=== PATIENT | female | born 1960 | race Caucasian/White ===

== ENCOUNTER 2018-08-22 18:26 | Observation (INO) | payer BC ==
[2018-08-22 22:08] LABS: ADD MAN DIFF? NO
[2018-08-22] MEDS: hydrALAzine 20 MG INJ IV (22:08)
[2018-08-22 22:09] LABS: BASOPHIL # 0.1 10^3/ul (0.0-0.1); BASOPHILS % 0.9 % (0.0-2.0); EOSINOPHILS # 0.3 10^3/ul (0.0-0.5); EOSINOPHILS % 3.3 % (0.0-7.0); HEMATOCRIT 41.4 % (37.0-47.0); HEMOGLOBIN 14.3 g/dl (12.0-16.0); LYMPHOCYTES # 2.7 10^3/ul (0.8-2.9); LYMPHOCYTES % 34.2 % (15.0-51.0); MEAN CORPUSCULAR HEMOGLOBIN 30.3 pg (29.0-33.0); MEAN CORPUSCULAR HGB CONC 34.5 g/dl (32.0-37.0); MEAN CORPUSCULAR VOLUME 87.7 fl (82.0-101.0); MEAN PLATELET VOLUME 9.2 fl (7.4-10.4); MONOCYTE # 0.6 10^3/ul (0.3-0.9); MONOCYTES % 7.6 % (0.0-11.0); NEUTROPHIL # 4.2 10^3/ul (1.6-7.5); NEUTROPHILS % 53.7 % (39.0-77.0); PLATELET COUNT 254 10^3/UL (140-415); RED BLOOD COUNT 4.72 10^6/ul (4.20-5.40); RED CELL DISTRIBUTION WIDTH 12.3 % (11.5-14.5)
[2018-08-22 22:09] LABS: WHITE BLOOD COUNT 7.9 10^3/ul (4.8-10.8)
[2018-08-22 22:27] LABS: ALANINE AMINOTRANSFERASE 15 IU/L (13-69); ALBUMIN 4.1 g/dl (3.3-4.9); ALBUMIN/GLOBULIN RATIO 1.17; ALKALINE PHOSPHATASE 91 IU/L (42-121); ANION GAP 9 (5-13); ASPARTATE AMINO TRANSFERASE 30 IU/L (15-46); BILIRUBIN,INDIRECT 0.3 mg/dl (0-1.1); BILIRUBIN,TOTAL 0.3 mg/dl (0.2-1.3); BLOOD UREA NITROGEN 17 mg/dl (7-20); CALCIUM 9.4 mg/dl (8.4-10.2); CARBON DIOXIDE 28 mmol/L (21-31); CHLORIDE 101 mmol/L (97-110); CREATININE 0.87 mg/dl (0.44-1.00); Estimated GFR > 60 mL/min (>60); GLUCOSE 163 mg/dl (70-220); SODIUM 138 mmol/L (135-144); TOTAL PROTEIN 7.6 g/dl (6.1-8.1)
[2018-08-22 22:28] LABS: INR 0.83; PROTIME 11.5 Sec (11.9-14.9); PT RATIO 0.9
[2018-08-22 22:29] LABS: PARTIAL THROMBOPLASTIN TIME 27.3 Sec (23.0-35.0)
[2018-08-22 22:38] LABS: B-TYPE NATRIURETIC PEPTIDE 159 PG/ML (0-125); TROPONIN-I < 0.012 ng/ml (0.000-0.120)
[2018-08-23] MEDS ORDERED: DEXTROSE 50% 50 ML SYRINGE IV ×2 (00:30)
[2018-08-23] MEDS ORDERED: GLUCOSE GEL 15 GRAM TUBE PO ×2 (00:30)
[2018-08-23] MEDS ORDERED: GLUCAGON 1 MG INJ IM (00:30)
[2018-08-23] MEDS ORDERED: GLUCOSE GEL 15 GRAM TUBE BUCCAL (00:30)
[2018-08-23] MEDS: ASPIRIN (EC) 81 MG TAB PO (00:59)
[2018-08-23] MEDS: hydrALAzine 20 MG INJ IV ×2 (04:06→18:22)
[2018-08-23 06:08] LABS: CHOL/HDL RATIO 4.6 RATIO; HDL CHOLESTEROL 43 mg/dl (37-92); LDL CHOLESTEROL,CALCULATED 133 mg/dl; TRIGLYCERIDES 115 mg/dl (0-149)
[2018-08-23 06:08] LABS: CHOLESTEROL 199 mg/dl (100-200)
[2018-08-23] MEDS ORDERED: AMLODIPINE 5 MG TAB (06:13)
[2018-08-23 06:22] LABS: TROPONIN-I < 0.012 ng/ml (0.000-0.120)
[2018-08-23 06:31] LABS: ADD MAN DIFF? NO
[2018-08-23 06:37] LABS: BASOPHIL # 0.1 10^3/ul (0.0-0.1); BASOPHILS % 0.9 % (0.0-2.0); EOSINOPHILS # 0.2 10^3/ul (0.0-0.5); EOSINOPHILS % 2.6 % (0.0-7.0); HEMATOCRIT 41.9 % (37.0-47.0); HEMOGLOBIN 14.6 g/dl (12.0-16.0); LYMPHOCYTES % 26.2 % (15.0-51.0); MEAN CORPUSCULAR HEMOGLOBIN 30.3 pg (29.0-33.0); MEAN CORPUSCULAR HGB CONC 34.8 g/dl (32.0-37.0); MEAN CORPUSCULAR VOLUME 86.9 fl (82.0-101.0); MEAN PLATELET VOLUME 9.2 fl (7.4-10.4); MONOCYTE # 0.7 10^3/ul (0.3-0.9); MONOCYTES % 8.6 % (0.0-11.0); NEUTROPHIL # 4.7 10^3/ul (1.6-7.5); NEUTROPHILS % 61.4 % (39.0-77.0); PLATELET COUNT 276 10^3/UL (140-415); RED BLOOD COUNT 4.82 10^6/ul (4.20-5.40); RED CELL DISTRIBUTION WIDTH 12.4 % (11.5-14.5)
[2018-08-23 06:37] LABS: WHITE BLOOD COUNT 7.7 10^3/ul (4.8-10.8)
[2018-08-23 07:07] LABS: ANION GAP 9 (5-13); BLOOD UREA NITROGEN 15 mg/dl (7-20); CALCIUM 9.7 mg/dl (8.4-10.2); CARBON DIOXIDE 28 mmol/L (21-31); CHLORIDE 104 mmol/L (97-110); CREATININE 0.66 mg/dl (0.44-1.00); Estimated GFR > 60 mL/min (>60); GLUCOSE 94 mg/dl (70-220); MAGNESIUM 1.8 mg/dl (1.7-2.5); PHOSPHORUS 4.2 mg/dl (2.5-4.9); SODIUM 141 mmol/L (135-144)
[2018-08-23] MEDS: metFORMIN 500 MG TAB PO ×3 (07:35→17:18)
[2018-08-23] MEDS: INSULIN ASPART [NOVOLOG] 3 ML PEN SC ×4 (07:35→20:04)
[2018-08-23] MEDS: GABAPENTIN 300 MG CAP PO ×2 (08:33→20:04)
[2018-08-23] MEDS: AMLODIPINE 5 MG TAB PO (08:33)
[2018-08-23] MEDS: SPIRONOLACTONE 25 MG TAB PO (08:33)
[2018-08-23] MEDS ORDERED: INSULIN GLARGINE [LANtus] 3 ML PEN SC (09:00)
[2018-08-23] MEDS ORDERED: INSULIN GLARGINE [LANTus] (100 UNITS/ML) SYG SC (10:00)
[2018-08-23] MEDS: INSULIN GLARGINE [LANTus] (100 UNITS/ML) SYG SC (11:39)
[2018-08-23 12:47] LABS: TROPONIN-I < 0.012 ng/ml (0.000-0.120)
[2018-08-23] MEDS: LOSARTAN 50 MG TAB PO (19:00)
[2018-08-23] MEDS: ASPIRIN (EC) 325 MG TAB PO (19:44)
[2018-08-23] MEDS: ATORVASTATIN 40 MG TAB PO (20:04)
[2018-08-23] MEDS ORDERED: ATORVASTATIN 20 MG TAB PO (21:00)
[2018-08-23] MEDS: DOCUSATE SODIUM 100 MG CAP PO (21:34)
[2018-08-23] MEDS ORDERED: hydrALAzine 20 MG INJ IV (23:30)
[2018-08-24] MEDS: ACETAMINOPHEN 325 MG TAB PO (05:08)
[2018-08-24] MEDS: INSULIN ASPART [NOVOLOG] 3 ML PEN SC ×3 (08:00→17:17)
[2018-08-24] MEDS: metFORMIN 500 MG TAB PO ×2 (08:00→17:16)
[2018-08-24] MEDS: DOCUSATE SODIUM 100 MG CAP PO (08:43)
[2018-08-24] MEDS: ASPIRIN (EC) 325 MG TAB PO (08:43)
[2018-08-24] MEDS: GABAPENTIN 300 MG CAP PO (08:44)
[2018-08-24] MEDS: LOSARTAN 50 MG TAB PO (08:44)
[2018-08-24] MEDS: SPIRONOLACTONE 25 MG TAB PO (08:44)
[2018-08-24] MEDS: AMLODIPINE 5 MG TAB PO (08:45)
[2018-08-24] MEDS: REGADENOSON 0.4 MG/5 ML SYG (12:20)
[2018-08-24] MEDS: INSULIN GLARGINE [LANTus] (100 UNITS/ML) SYG SC (16:24)
[2018-08-25] MEDS ORDERED: INSULIN GLARGINE [LANTus] (100 UNITS/ML) SYG SC (09:00)
== END 2018-08-24 19:43 | disposition home or self-care (01) ==
LOC: ICU 23:10 → 6WM 08-24 04:05 → E/R 18:26
DX: R07.89 Other chest pain (principal); I10 Essential (primary) hypertension; E78.5 Hyperlipidemia, unspecified; E11.9 Type 2 diabetes mellitus without complications; E66.9 Obesity, unspecified; Z68.37 Body mass index [BMI] 37.0-37.9, adult; Z79.4 Long term (current) use of insulin
CPT/HCPCS: 71045; 78452; 80048; 80053; 80061; 82962; 83735; 83880; 84100; 84484; 85025; 85610; 85730; 93005; 93017; 93306; G0378